=== PATIENT | female | born 1935 | race Caucasian/White ===

== ENCOUNTER → 2018-02-28 | Outpatient (CLI) | payer MEDICARE, OTHER ==
--- NOTE | 2018-02-28 15:11 | RAD ---
PQRS Compliance Statement: One or more of the following individualized dose reduction techniques were utilized for this examination: 1. Automated exposure control 2. Adjustment of the mA and/or kV according to patient size 3. Use of iterative reconstruction technique CT abdomen/pelvis without contrast 02/28/2018 2:30 PM INDICATION: Weeping sore at the umbilicus for one week. Kidney failure. COMPARISON: None available TECHNIQUE: Multiple axial CT images of the abdomen and pelvis were obtained without intravenous contrast. Coronal and sagittal reformats are provided. FINDINGS: Lung bases are clear. Heart size is within normal limits. Evaluation of solid abdominal viscera is limited by lack of intravenous contrast. No suspicious hepatic lesions are identified. Calcination's of the spleen and liver likely represent sequela prior granulomatous exposure. Calcified gallstone is identified. There is gallbladder wall calcification. There is moderate fatty atrophy of the pancreas. No suspicious pancreatic mass is identified. No peripancreatic inflammatory changes are identified. The abdominal aorta is normal in course and caliber. There are no pathologically enlarged lymph nodes in the abdomen and pelvis. There is no abdominal free fluid. There is no free intraperitoneal air. Dense calcified atheromatous changes of the abdominal aorta are present. There is a 6 mm nonobstructing calculus in inferior pole the left kidney. Bilateral renal cortical atrophy is identified. Motion artifact limits evaluation of the kidneys. There may be a 16 mm cyst in the anterior interpolar left kidney. There is mild colonic diverticulosis. No adjacent plantar changes are identified. No evidence of bowel obstruction or inflammation. Appendix is normal in appearance. Urinary bladder is suboptimally distended. No suspicious pelvic masses are identified. There is small amount of fluid in the region of the appendix with associated tiny umbilical hernia containing fat. No drainable fluid collection is identified. No suspicious osseous abnormality is identified. Moderate degenerative disc disease of the lumbar spine is present. There is minimal anterolisthesis of L5 on S1. IMPRESSION: 1. Minimal fluid is noted involving the umbilical region without a drainable fluid collection. No abscess is identified. Tiny fat-containing umbilical hernia is noted. 2. 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 3. 6 mm nonobstructing calculus in inferior pole the left kidney. 4. 16 mm cystic lesion in the anterior interpolar left kidney is inadequately assessed. Further evaluation with renal ultrasound on a nonemergent basis. Electronically signed by: Jo-Ann Garcia MD (02/28/2018 3:08 PM) [facility]
== END | disposition home or self-care (01) ==
LOC: PMG 13:58
PROVIDERS: ATTEND Physician Assistant
DX: N20.0 Calculus of kidney (principal); K80.10 Calculus of gallbladder with chronic cholecystitis without obstruction; N28.89 Other specified disorders of kidney and ureter; M51.36 Other intervertebral disc degeneration, lumbar region; M43.17 Spondylolisthesis, lumbosacral region; N32.89 Other specified disorders of bladder; K57.30 Diverticulosis of large intestine without perforation or abscess without bleeding; N26.1 Atrophy of kidney (terminal); I70.0 Atherosclerosis of aorta; K86.89 Other specified diseases of pancreas; K80.80 Other cholelithiasis without obstruction
CPT/HCPCS: 74176

== ENCOUNTER 2019-01-09 12:10 | Inpatient (IN) | payer MEDICARE, OTHER ==
[~2019-01-09] VITALS: Ht 158.8 cm; Wt 88.5 kg
[2019-01-09] VITALS (24 sets, daily range): BP systolic 107–152; BP diastolic 32–88
[2019-01-09 13:46] LABS: BASO # 0.1 x10^3/uL (0.0-0.2); BASO % 1 % (0-3); EOS # 0.5 x10^3/uL (0.0-0.7); EOS % 4 % (0-3); HEMATOCRIT 44.1 % (36.0-47.0); HEMOGLOBIN 14.4 g/dL (12.0-15.5); LYMPH # 1.6 x10^3/uL (1.0-4.8); LYMPH % 11 % (24-48); MEAN CORPUSCULAR HEMOGLOBIN 29 pg (25-35); MEAN CORPUSCULAR HGB CONC 33 g/dL (31-37); MEAN CORPUSCULAR VOLUME 88 fL (79-100); MONO # 1.5 x10^3/uL (0.0-1.1); MONO % 10 % (0-9); NEUT # 11.1 x10^3uL (1.8-7.7); NEUT % 75 % (31-73); PLATELET COUNT 276 x10^3/uL (140-400); RED BLOOD COUNT 5.04 x10^6/uL (3.50-5.40); RED CELL DISTRIBUTION WIDTH 14.4 % (11.5-14.5); WHITE BLOOD COUNT 14.9 x10^3/uL (4.0-11.0)
[2019-01-09 13:52] LABS: ALBUMIN 3.5 g/dL (3.4-5.0); ALBUMIN/GLOBULIN RATIO 0.8 (1.0-1.7); CALCIUM 9.7 mg/dL (8.5-10.1); CREATININE 1.6 mg/dL (0.6-1.0); GFR 30.6; POTASSIUM 4.3 mmol/L (3.5-5.1); TOTAL BILIRUBIN 0.6 mg/dL (0.2-1.0)
--- NOTE | 2019-01-09 13:57 | PDOC2 ---
VANESSA PATE PRODUCTION CLERK 01/09/19 1357: CARDIAC CONSULT DATE OF CONSULT Date Of Consult DATE: 01/09/19 TIME: 13:54 REASON FOR CONSULT Reason for Consult AFIB with RVR REFERRING PHYSICIAN Referring Physician Dr. Carrion SOURCE Source: Chart review, Patient HPI History of Present Illness This is an 83 yo female, who presented secondary to new AFIB with RVR. Patient presented to PCP office secondary to 1 week history of right sided abdominal pain and nausea. Heart rate was noted to be elevated. EKG revealed AFIB with RVR and patient was admitted to the hospital for further evaluation and treatment. Patient denies any chest pain, palpitations, dizziness, diaphoresis, or shortness of breath. Has had nausea, but no vomiting. No prior history of AFIB. PAST MEDICAL HISTORY Cardiovascular: HTN Musculoskeletal: Osteoarthritis Rheumatologic: Gout PAST SURGICAL HISTORY Past Surgical History: Cataract Removal, Hysterectomy FAMILY HISTORY Family History: Hypertension SOCIAL HISTORY Smoke: No ALCOHOL: none Drugs: None Lives: with Family CURRENT MEDICATIONS Current Medications Current Medications Diltiazem HCl 125 mg/Dextrose 125 ml @ 5 mls/hr CONT PRN IV SEE I/O RECORD; St art 01/09/19 at 13:15; Status UNV ALLERGIES Allergies: Coded Allergies: codeine (Verified Adverse Reaction, Mild, stomach upset, 01/09/19) ROS Review of Systems 14 point ROS conducted with pertinent positives noted in HPI PHYSICAL EXAM General: Alert, Oriented X3, Cooperative, No acute distress HEENT: Atraumatic, Mucous membr. moist/pink Lungs: Clear to auscultation, Other (diminished bases ) Heart: Other (IRRR; tele AFIB with RVR. Distant heart tones ) Abdomen: Soft Extremities: Other (trace bilateral LE edema ) Neuro: Normal speech, Sensation intact Psych/Mental Status: Mental status NL, Mood NL MUSCULOSKELETAL: No swelling, Osteoarthritic changes both hands VITALS Vital Signs Vital Signs Date Time Temp Pulse Resp B/P (MAP) Pulse Ox O2 Delivery O2 Flow Rate FiO2 01/09/19 13:11 98.0 125 22 146/76 (99) 96 Room Air LABS LABS Laboratory Tests Test 01/09/19 13:33 White Blood Count 14.9 x10^3/uL (4.0-11.0) Red Blood Count 5.04 x10^6/uL (3.50-5.40) Hemoglobin 14.4 g/dL (12.0-15.5) Hematocrit 44.1 % (36.0-47.0) Mean Corpuscular Volume 88 fL (79-100) Mean Corpuscular Hemoglobin 29 pg (25-35) Mean Corpuscular Hemoglobin Concent 33 g/dL (31-37) Red Cell Distribution Width 14.4 % (11.5-14.5) Platelet Count 276 x10^3/uL (140-400) Neutrophils (%) (Auto) 75 % (31-73) Lymphocytes (%) (Auto) 11 % (24-48) Monocytes (%) (Auto) 10 % (0-9) Eosinophils (%) (Auto) 4 % (0-3) Basophils (%) (Auto) 1 % (0-3) Neutrophils # (Auto) 11.1 x10^3uL (1.8-7.7) Lymphocytes # (Auto) 1.6 x10^3/uL (1.0-4.8) Monocytes # (Auto) 1.5 x10^3/uL (0.0-1.1) Eosinophils # (Auto) 0.5 x10^3/uL (0.0-0.7) Basophils # (Auto) 0.1 x10^3/uL (0.0-0.2) Sodium Level 137 mmol/L (136-145) Potassium Level 4.3 mmol/L (3.5-5.1) Chloride Level 104 mmol/L (98-107) Carbon Dioxide Level 22 mmol/L (21-32) Anion Gap 11 (6-14) Blood Urea Nitrogen 33 mg/dL (7-20) Creatinine 1.6 mg/dL (0.6-1.0) Estimated GFR (Cockcroft-Gault) 30.6 BUN/Creatinine Ratio 21 (6-20) Glucose Level 129 mg/dL (70-99) Calcium Level 9.7 mg/dL (8.5-10.1) Total Bilirubin 0.6 mg/dL (0.2-1.0) Aspartate Amino Transf (AST/SGOT) 14 U/L (15-37) Alanine Aminotransferase (ALT/SGPT) 16 U/L (14-59) Alkaline Phosphatase 83 U/L (46-116) Total Protein 8.0 g/dL (6.4-8.2) Albumin 3.5 g/dL (3.4-5.0) Albumin/Globulin Ratio 0.8 (1.0-1.7) ASSESSMENT/PLAN Assessment/Plan 1. AFIB with RVR, new onset. 2. Hypertension; controlled Recommendations Start Cardizem gtt for rate control OAC with Eliquis for stroke prophylaxis. Risks/benefits discussed with patient and family, including granddaughter who is a nurse, and they are agreeable. Echo to assess LV systolic function TSH, lipids Outpatient CV in 3-4 weeks. Consider outpatient ischemic evaluation ASHLEY JORDAN MD 01/09/192034: CARDIAC CONSULT ASSESSMENT/PLAN Assessment/Plan Patient seen and examined. Agree with FLOOR RUNNER's assessment and plan. Patient with new onset AF with RVR Agree with cardizem gtt for rate control and eliquis for stroke prophylaxix Plan echo and MPI as outpatient Cardioversion after 3-4 weeks of anticoagulation Thank you for your consultation VANESSA PATE APRN Jan 09, 2019 13:57 ASHLEY JORDAN MD Jan 09, 2019 20:35
[2019-01-09] MEDS ORDERED: OLME1TAB25 PO (13:58)
[2019-01-09] MEDS ORDERED: POTA10TA5 PO (13:58)
[2019-01-09] MEDS ORDERED: OMEG-33 PO (13:58)
[2019-01-09] MEDS ORDERED: ASPI-630 PO (13:58)
[2019-01-09] MEDS ORDERED: MAGN400T5 PO (13:58)
[2019-01-09] MEDS ORDERED: AMLO10TA4 PO (13:58)
[2019-01-09] MEDS ORDERED: FURO-69 PO (13:58)
[2019-01-09] MEDS: dilTIAZem VIAL 125 MG in IV DEXTROSE 5% 100 ML IV PRN ×2 (14:58→23:55)
--- NOTE | 2019-01-09 15:32 | HP ---
ADMIT DATE: 01/09/2019 HISTORY OF PRESENT ILLNESS: The patient is an 83-year-old female patient who came with her primary care physician today as she has been complaining of nausea that has been going on for almost a week now. She also complained of right flank pain; however, she denied any vomiting, denied any hematemesis, melena, or hematochezia. Still admits to constipation, but denied any diarrhea. Denied any dysuria, frequency or hematuria. Apparently while at her primary care physician's office, she was noted to have a rapid heart rate. She has tachycardia with ____ rhythm and an EKG showed confirmed that she was actually in atrial fibrillation with rapid ventricular response and therefore, the patient was admitted with atrial fibrillation, rapid ventricular response to control the heart rate and to consult the cardiology team. PAST MEDICAL HISTORY: Significant for hypertension. PAST SURGICAL HISTORY: Significant for bilateral cataract extraction, total abdominal hysterectomy, bilateral salpingo-oophorectomy. ALLERGIES: She has no known drug allergies. MEDICATIONS: She is currently on Benicar/hydrochlorothiazide 40/25 mg 1 tablet once a day, Norvasc 10 mg once a day, baby aspirin 81 mg once a day, and magnesium oxide 1 tablet once a day. FAMILY HISTORY: She has no sisters or brothers. Her father at the age of 25 and according to her, he has pernicious anemia, congestive heart failure and kidney disease. Mother at the age of 84 with natural causes. SOCIAL HISTORY: She is . She has 2 daughters and 2 sons. One baby was survived only for 2 days and one other son of cancer. Currently, she has 1 son and 2 daughters alive. She has never smoked, does not drink alcohol or use any recreational drugs. 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 She continued to be fairly independent. Drives her own car and do her own shopping. REVIEW OF SYSTEMS: The patient denied any blurring of vision. She has bilateral cataract extraction, but denied any glaucoma or macular degeneration. Denied any earache, tinnitus or sensorineural deafness. Denied any nosebleeds, stuffy nose or postnasal drip. Denied any sore throat, sore tongue, toothache, hoarseness of voice or difficulty swallowing. Did complain of nausea, but no vomiting. Denied any diarrhea or constipation. Denied any dysuria. Denied any hematemesis, melena or hematochezia. She denied any chest pain, shortness of breath, orthopnea, paroxysmal nocturnal dyspnea. Denied any cough, phlegm or hemoptysis. Denied any palpitation, dizziness or lightheadedness. Denied any vertigo. PHYSICAL EXAMINATION: GENERAL: On arrival to the hospital, she looked well and was clearly in no apparent respiratory distress. No pallor, jaundice, cyanosis or thyromegaly. No jugular venous distention. No limb edema. VITAL SIGNS: Her heart rate was 125, blood pressure was 146/76, temperature was 98, respiratory rate was 22 and oxygen saturation was 96%. HEAD, EYES, EARS, NOSE AND THROAT: Showed normocephalic, atraumatic. NECK: Supple. HEART: Showed normal first and second heart sounds. No gallop or murmur. CHEST: Clear to auscultation. No crepitation or rhonchi. ABDOMEN: Distended, soft, nontender. No guarding or rigidity. No organomegaly. All hernial orifice intact. Bowel sounds normal. NEUROLOGIC: She was awake, alert, responding appropriately. All her cranial nerves intact. EXTREMITIES: She moves extremities without difficulty. She ambulates with a cane, walker. She has had no laboratory work done yet. We will arrange for her to have a CBC, CMP, troponin as well as TSH and fasting lipid profile. She has had 2 EKGs which both of them showed that she was in atrial fibrillation with rapid ventricular response. We will consult the [employer]er shoe [employer] and we will decide the further management accordingly, probably started on Cardizem drip after an IV bolus, probably start her on anticoagulant. DALILA MCELROY MD DR: ABEL/nikki JOB#: [id number] / [id number]
[2019-01-09] MEDS: APIXABAN 5 MG TABLET. PO SCH (20:45)
[2019-01-10] VITALS (20 sets, daily range): BP systolic 96–149; BP diastolic 49–124
[2019-01-10] MEDS ORDERED: POTASSIUM CHLORIDE 10 MEQ TABLET.ER. PO SCH (08:00)
[2019-01-10 08:04] LABS: HEMATOCRIT 43.6 % (36.0-47.0); HEMOGLOBIN 14.1 g/dL (12.0-15.5); RED BLOOD COUNT 4.92 x10^6/uL (3.50-5.40); RED CELL DISTRIBUTION WIDTH 14.6 % (11.5-14.5); WHITE BLOOD COUNT 15.1 x10^3/uL (4.0-11.0)
[2019-01-10 08:14] LABS: CALCIUM 9.4 mg/dL (8.5-10.1); CREATININE 1.4 mg/dL (0.6-1.0); GFR 35.7; POTASSIUM 4.3 mmol/L (3.5-5.1)
[2019-01-10] MEDS: APIXABAN 5 MG TABLET. PO SCH (08:31)
[2019-01-10] MEDS ORDERED: amLODIPine BESYLATE 10 MG TABLET PO SCH (09:00)
[2019-01-10] MEDS ORDERED: MAGNESIUM OXIDE 400 MG TABLET PO SCH (09:00)
[2019-01-10] MEDS ORDERED: FUROSEMIDE 20 MG TABLET PO SCH (09:00)
[2019-01-10] MEDS ORDERED: LOSARTAN 50 MG TABLET. PO SCH (09:00)
[2019-01-10] MEDS ORDERED: OMEGA-3 FATTY ACIDS/FISH OIL 1,000 MG CAPSULE. PO SCH (09:00)
[2019-01-10] MEDS ORDERED: hydroCHLOROthiazide 25 MG TABLET PO SCH (09:00)
[2019-01-10] MEDS ORDERED: ASPIRIN 81 MG TAB.CHEW PO SCH (09:00)
[2019-01-10 10:37] LABS: THYROID STIM HORMONE (TSH) 2.53 uIU/mL (0.358-3.740)
[2019-01-10] MEDS: dilTIAZem VIAL 125 MG in IV DEXTROSE 5% 100 ML IV PRN (12:50)
--- NOTE | 2019-01-10 14:11 | PDOC ---
PROGRESS NOTES Assessment 1. AFIB with RVR, new onset. Heart rate much better controlled. Change Cardizem to by mouth. Continue eliquis for stroke prophylaxis and plan outpatient cardioversion in 3-4 weeks. We will also check 2-D echo and Lexiscan nuclear stress test as an outpatient. 2. Hypertension; controlled Subjective Feeling much better. Wants to go home. Objective Vital Signs Date Time Temp Pulse Resp B/P (MAP) Pulse Ox O2 Delivery O2 Flow Rate FiO2 01/10/19 13:30 55 141/58 01/10/19 11:55 98.0 20 97 Room Air Intake and Output 01/10/19 07:00 Intake Total 442 ml Output Total 0 ml Balance 442 ml Intake Oral 307 ml IV Total 135 ml Output Urine Total 0 ml # Voids 3 Abdomen: Soft, No tenderness Heart: Other (heart rate is irregular) Extremities: Other (trace edema) General: Alert, No acute distress HEENT: Atraumatic Lungs: Clear to auscultation Neck: Supple Neuro: Normal speech Psych/Mental Status: Mental status NL Review of Relevant I have reviewed the following items linda (where applicable) has been applied. Labs Laboratory Tests Test 01/10/19 07:50 White Blood Count 15.1 x10^3/uL (4.0-11.0) H Red Blood Count 4.92 x10^6/uL (3.50-5.40) Hemoglobin 14.1 g/dL (12.0-15.5) Hematocrit 43.6 % (36.0-47.0) Mean Corpuscular Volume 89 fL (79-100) Mean Corpuscular Hemoglobin 29 pg (25-35) Mean Corpuscular Hemoglobin Concent 32 g/dL (31-37) Red Cell Distribution Width 14.6 % (11.5-14.5) H Platelet Count 248 x10^3/uL (140-400) Sodium Level 138 mmol/L (136-145) Potassium Level 4.3 mmol/L (3.5-5.1) Chloride Level 103 mmol/L (98-107) Carbon Dioxide Level 23 mmol/L (21-32) Anion Gap 12 (6-14) Blood Urea Nitrogen 28 mg/dL (7-20) H Creatinine 1.4 mg/dL (0.6-1.0) H Estimated GFR (Cockcroft-Gault) 35.7 Glucose Level 147 mg/dL (70-99) H Calcium Level 9.4 mg/dL (8.5-10.1) Medications Current Medications Medications (Trade) Dose Ordered Sig/Latesha Route PRN Reason Start Time Stop Time Status Last Admin Dose Admin Apixaban (Eliquis) 5 mg BID PO 01/09/19 21:00 01/10/19 08:31 Aspirin (Children'S Aspirin) 81 mg DAILY PO 01/10/19 09:00 01/10/19 08:31 Magnesium Oxide (Magnesium Oxide) 400 mg DAILY PO 01/10/19 09:00 01/10/19 08:30 Losartan Potassium (Cozaar) 100 mg DAILY PO 01/10/19 09:00 01/10/19 08:30 Potassium Chloride (Klor-Con) 10 meq DAILYWBKFT PO 01/10/19 08:00 01/10/19 08:31 Fish Oil (Fish Oil) 1,000 mg DAILY PO 01/10/19 09:00 01/10/19 08:30 Hydrochlorothiazide (Hydrodiuril) 25 mg DAILY PO 01/10/19 09:00 01/10/19 08:30 Diltiazem HCl (Cardizem 24hr Cd) 240 mg DAILY PO 01/10/19 13:30 01/10/19 13:30 Vitals/I & O Vital Signs Date Time Temp Pulse Resp B/P (MAP) Pulse Ox O2 Delivery O2 Flow Rate FiO2 01/10/19 13:30 55 141/58 01/10/19 11:55 98.0 20 97 Room Air I & O 01/09/19 01/09/19 01/10/19 15:00 23:00 07:00 Intake Total 25 ml 182 ml 235 ml Output Total 0 ml 0 ml Balance 25 ml 182 ml 235 ml ASHLEY JORDAN MD Jan 10, 2019 14:11
--- NOTE | 2019-01-10 17:41 | EKG ---
[address] [address] Test Date: 2019-01-09 Test Time: 12:54:51 Pat Name: KVNG LEAVITT Department: Room: [facility] 1 Gender: F Tool Crib Manager: EMA : [id number] Requested By: DALILA MCELROY Order Number: [id number] Reading MD: Measurements Intervals [place] Rate: 128 P: HI: QRS: -2 QRSD: 80 T: 64 QT: 266 QTc: 391 Interpretive Statements IRREGULAR RHYTHM, NO P-WAVE FOUND LEFTWARD AXIS T ABNORMALITY IN ANTERIOR LEADS ABNORMAL ECG RI6.02 No previous ECG available for comparison
[2019-01-10] MEDS ORDERED: DILT240C32 PO (18:07)
[2019-01-10] MEDS ORDERED: APIX5TAB5 PO (18:07)
--- NOTE | 2019-01-10 19:22 | DS ---
DATE OF DISCHARGE: 01/10/2019 HOSPITAL COURSE: The patient is an 83-year-old female patient who presented new onset of atrial fibrillation with rapid ventricular response. She was started on Cardizem drip and was switched this afternoon to oral Cardizem. She was also started on apixaban. Her heart rate remained stable, well controlled and a decision was made to discharge her home and to follow with Cardiology team as an outpatient. PHYSICAL EXAMINATION: GENERAL: When I examined her this afternoon, she looked well and was clearly in no apparent respiratory distress. No pallor, jaundice, cyanosis or thyromegaly. No jugular venous distention or limb edema. VITAL SIGNS: Her heart rate was 61, blood pressure was 114/66, temperature was 98, respiratory rate was 18 and oxygen saturation was 97% on room air. The rest of clinical examination is stable. LABORATORY DATA: Her lab work this morning showed a white cell count 15,100; hemoglobin 14; hematocrit 43; MCV was 89 and platelet count 248,000. Her serum sodium was 138, potassium 4.3, chloride 103, bicarbonate 23, anion gap of 12, BUN 28, creatinine 1.4, estimated GFR was 35 mL per minute. Her glucose 147, calcium was 9.4. Serum triglycerides were 89, total cholesterol 153, LDL was 95, VLDL was 17, HDL was 41, the ratio was 3. TSH was 2.53. Her prothrombin time was 10.4, INR 1, aPTT was 30. DISCHARGE MEDICATIONS: She was discharged home to continue on diltiazem 240 mg once a day, hydrochlorothiazide 25 mg once a day, fish oil 1000 mg once a day, losartan potassium 100 mg once a day, magnesium oxide 400 mg once a day, aspirin 81 mg once a day. We will discontinue the Lasix, potassium and amlodipine. FINAL DISCHARGE DIAGNOSES: New onset atrial fibrillation with rapid ventricular response, much better controlled. Continue with Cardizem and Eliquis. Will be seen as an outpatient in 3-4 weeks' time for outpatient cardioversion. Hypertension, well controlled. DALILA MCELROY MD DR: ABEL/nikki JOB#: [id number] / [id number]
== END 2019-01-10 18:34 | disposition home or self-care (01) | DRG 309 ==
LOC: ICU 12:10
PROVIDERS: ADMIT Internal Medicine; ATTEND Internal Medicine
DX: I48.91 Unspecified atrial fibrillation (principal); R65.10 Systemic inflammatory response syndrome (SIRS) of non-infectious origin without acute organ dysfunction; I10 Essential (primary) hypertension; M19.90 Unspecified osteoarthritis, unspecified site; Z82.49 Family history of ischemic heart disease and other diseases of the circulatory system; Z90.710 Acquired absence of both cervix and uterus; Z98.41 Cataract extraction status, right eye; Z98.42 Cataract extraction status, left eye; Z90.722 Acquired absence of ovaries, bilateral
CPT/HCPCS: 36415; 74019; 80048; 80053; 80061; 82550; 84443; 84484; 85025; 85027; 85610; 85730; 93005; J3490

== ENCOUNTER 2019-01-12 09:38 | Emergency (ER) | payer MEDICARE, OTHER ==
[~2019-01-12] VITALS: Ht 158.8 cm; Wt 88.5 kg
[~2019-01-12 09:38] MED LIST: AMLO10TA4 PO; APIX5TAB5 PO; ASPI-630 PO; DILT240C32 PO; FURO-69 PO; MAGN400T5 PO; OLME1TAB25 PO; OMEG-33 PO; POTA10TA5 PO
[2019-01-12] MEDS ORDERED: IV NORMAL SALINE 1,000ML 1,000 ML IV SCH (10:06)
[2019-01-12] MEDS ORDERED: ONDANSETRON PF 4 MG/2 ML VIAL. IVP ONE (10:15)
[2019-01-12 10:24] LABS: BASO # 0.1 x10^3/uL (0.0-0.2); BASO % 1 % (0-3); EOS # 0.7 x10^3/uL (0.0-0.7); EOS % 4 % (0-3); HEMATOCRIT 40.4 % (36.0-47.0); HEMOGLOBIN 13.2 g/dL (12.0-15.5); LYMPH # 2.5 x10^3/uL (1.0-4.8); LYMPH % 13 % (24-48); MEAN CORPUSCULAR HEMOGLOBIN 28 pg (25-35); MEAN CORPUSCULAR HGB CONC 33 g/dL (31-37); MEAN CORPUSCULAR VOLUME 87 fL (79-100); MONO # 1.5 x10^3/uL (0.0-1.1); MONO % 8 % (0-9); NEUT # 13.9 x10^3uL (1.8-7.7); NEUT % 74 % (31-73); PLATELET COUNT 300 x10^3/uL (140-400); RED BLOOD COUNT 4.63 x10^6/uL (3.50-5.40); RED CELL DISTRIBUTION WIDTH 14.6 % (11.5-14.5); WHITE BLOOD COUNT 18.6 x10^3/uL (4.0-11.0)
--- NOTE | 2019-01-12 10:34 | PHYS DOC ---
Past History Past Medical History: A-Fib, Hypertension Past Surgical History: No Surgical History Alcohol Use: None Drug Use: None Adult General Chief Complaint Chief Complaint: ABDOMINAL PAIN HPI HPI Patient is an 83-year-old female who presents with complaint of right upper quadrant abdominal pain that started this morning when she got up. Patient rates the pain as severe stating that it is an 11 out of 10. She denies any nausea or vomiting. She also denies any diarrhea. Patient states that pain is worsened with movement and with palpation on the abdomen. She states that nothing is improving her pain. Patient is unable to describe the pain. She is not aware of any fever and denies any chest pain or shortness of breath.[] Review of Systems Review of Systems Constitutional: Denies fever or chills [] Respiratory: Denies cough or shortness of breath [] Cardiovascular: No additional information not addressed in HPI [] GI: Complains of right upper quadrant abdominal pain without vomiting or diarrhea [] Integument: Denies rash or skin lesions [] Neurologic: Denies headache, focal weakness or sensory changes [] All other systems were reviewed and found to be within normal limits, except as documented in this note. Current Medications Current Medications Current Medications Medications (Trade) Dose Ordered Sig/Latesha Start Time Stop Time Status Last Admin Dose Admin Fentanyl Citrate (Fentanyl 2ml Vial) 25 mcg PRN Q15MIN PRN 01/12/19 10:15 01/13/19 10:14 Ondansetron HCl (Zofran) 4 mg 1X ONCE 01/12/19 10:15 01/12/19 10:23 DC Sodium Chloride 1,000 ml @ 1,000 mls/hr Q1H 01/12/19 10:06 01/12/19 11:05 Allergies Allergies Allergies Coded Allergies Type Severity Reaction Last Updated Verified codeine Adverse Reaction Mild stomach upset 01/09/19 Yes Physical Exam Physical Exam Constitutional: Well developed, well nourished, in mild distress, non-toxic appearance. [] HENT: Normocephalic, atraumatic, bilateral external ears normal, oropharynx moist, no oral exudates, nose normal. [] Eyes: PERRLA, EOMI, conjunctiva normal, no discharge. [] Neck: Normal range of motion, no tenderness, supple. [] Cardiovascular: Tachycardic rate with irregular rhythm[] Lungs & Thorax: There are are a few fine rhonchi bilaterally to auscultation [] Abdomen: Bowel sounds normal, soft, with marked tenderness in the right upper abdomen. [] Skin: Warm, dry, no erythema, no rash. [] Extremities: No tenderness, no cyanosis, no clubbing, ROM intact. [] Neurologic: Awake and alert, no focal deficits noted. [] Current Patient Data Vital Signs Vital Signs Date Time Temp Pulse Resp B/P (MAP) Pulse Ox O2 Delivery O2 Flow Rate FiO2 01/12/19 09:59 135 22 95 Room Air Lab Results Laboratory Tests Test 01/12/19 10:08 White Blood Count 18.6 x10^3/uL (4.0-11.0) H Red Blood Count 4.63 x10^6/uL (3.50-5.40) Hemoglobin 13.2 g/dL (12.0-15.5) Hematocrit 40.4 % (36.0-47.0) Mean Corpuscular Volume 87 fL (79-100) Mean Corpuscular Hemoglobin 28 pg (25-35) Mean Corpuscular Hemoglobin Concent 33 g/dL (31-37) Red Cell Distribution Width 14.6 % (11.5-14.5) H Platelet Count 300 x10^3/uL (140-400) Neutrophils (%) (Auto) 74 % (31-73) H Lymphocytes (%) (Auto) 13 % (24-48) L Monocytes (%) (Auto) 8 % (0-9) Eosinophils (%) (Auto) 4 % (0-3) H Basophils (%) (Auto) 1 % (0-3) Neutrophils # (Auto) 13.9 x10^3uL (1.8-7.7) H Lymphocytes # (Auto) 2.5 x10^3/uL (1.0-4.8) Monocytes # (Auto) 1.5 x10^3/uL (0.0-1.1) H Eosinophils # (Auto) 0.7 x10^3/uL (0.0-0.7) Basophils # (Auto) 0.1 x10^3/uL (0.0-0.2) Platelet Estimate Pending EKG EKG [] Radiology/Procedures Radiology/Procedures [] Impressions: PROCEDURE: CT ABDOMEN PELVIS WO CONTRAST CT Abdomen and Pelvis without contrast History: Right upper quadrant abdominal pain Technique: Noncontrast CT imaging was performed of the abdomen and pelvis. Multiplanar images are reviewed. Exposure: One or more of the following individualized dose reduction techniques were utilized for this examination: 1. Automated exposure control 2. Adjustment of the mA and/or kV according to patient size 3. Use of iterative reconstruction technique. Comparison: February 28, 2018 Findings: There is moderate quantity of free air. No free air tracks near the gastroduodenal junction/proximal first along at which there is degree of wall thickening, also wall thickening more distally of the descending duodenum. There is small quantity of free fluid about the liver. There is dependent atelectasis visualized lung bases bilaterally. There is coronary calcification. There is calcification of the gallbladder forrester and also gallstone near the gallbladder neck about 1.2 cm. Bowel is not significantly dilated. There is no obvious focal abnormality of the pancreas or liver. There are some splenic granulomas. Normal appendix is believed to be visualized. There is multilevel advanced degenerative disc disease throughout the lumbar spine also visualized inferior thoracic levels. There is multilevel lumbar facet degenerative change. There is grade 1 anterior spondylolisthesis L4-5 and L5-S1. There is lumbar levoscoliosis. There is multilevel variable lateral recess stenosis of the lumbar spine. There is atherosclerotic calcification of the abdominal aorta, also near the origins of the superior mesenteric and celiac arteries at which there are likely significant stenoses greater of the celiac artery. There is also some atherosclerotic calcification of the inferior mesenteric artery proximally. There is small hiatal hernia. There is 0.7 cm inferior left renal calculus. There is variable thinning of the cortex of the kidneys. There is a hypodense lesion of the anterior left kidney about 1.5 cm, density measurements of a cyst up to 3 Hounsfield units. Impression: 1. There is pneumoperitoneum, evidence of perforated viscus probably emanating from the gastroduodenal junction/first portion of duodenum at which there is wall thickening. Perforated ulcer would be more common although underlying mass not excludable by CT. There is small quantity of free fluid about the liver. 2. There is a gallstone stone near the gallbladder neck about 1.2 cm. There is gallbladder wall calcification, associated with increased risk of gallbladder malignancy. 3. There is colonic diverticulosis. 4. There is coronary calcification. 5. There is inferior left renal calculus. 6. Calcified plaque results in stenoses of the origins of the celiac and superior mesenteric arteries, likely significant. Findings discussed with AMI LAND at 01/12/2019 11:54 AM. FOR INTERNAL CODING PURPOSES RESULT CODE: (C) Electronically signed by: Gela Garcia MD (01/12/2019 12:04 PM) [email or web address] DICTATED AND SIGNED BY: GELA GARCIA MD Course & Med Decision Making Course & Med Decision Making Pertinent Labs and Imaging studies reviewed. (See chart for details) A sugar moved to room upon arrival was evaluated by your medical staff after which an IV was established and blood work was drawn. Patient given IV fluids as well as medications for pain and nausea. Patient required repeat dosing of pain medication for management of patient's pain. Ultimately patient went over for CT of the abdomen and pelvis without contrast. On-call radiologist called to inform regarding findings of CT, which demonstrated free intraperitoneal air consistent with perforated viscus. Findings have been reviewed with patient and family and on-call surgeon has been contacted for transfer of patient. Patient's case has been discussed with Dr. Jennings and he is accepting patient in transfer to the ICU at [facility]. Dragon Disclaimer Dragon Disclaimer This electronic medical record was generated, in whole or in part, using a voice recognition dictation system. Departure Departure: Impression: Primary Impression: Perforated abdominal viscus Disposition: 02 XFER SHT-TRM HOSP Condition: GUARDED Referrals: DARA SANDERS (PCP) AMI LAND Jr. DO Jan 12, 2019 10:34
[2019-01-12 10:37] LABS: ALBUMIN 3.2 g/dL (3.4-5.0); ALBUMIN/GLOBULIN RATIO 0.8 (1.0-1.7); CALCIUM 9.2 mg/dL (8.5-10.1); CREATININE 1.8 mg/dL (0.6-1.0); GFR 26.7; POTASSIUM 3.7 mmol/L (3.5-5.1); TOTAL BILIRUBIN 0.6 mg/dL (0.2-1.0); TOTAL PROTEIN 7.3 g/dL (6.4-8.2)
[2019-01-12] MEDS ORDERED: dilTIAZem 25 MG/5 ML VIAL IVP ONE (10:45)
[2019-01-12] MEDS ORDERED: HYDROmorphone PF 1 MG/ML DISP.SYRIN IV ONE ×3 (10:45→12:00)
[2019-01-12 11:11] VITALS: BP 146/51
[2019-01-12 11:34] LABS: % BANDS 2 % (0-9); % EOS 3 % (0-5); % LYMPHS 16 % (24-48); % MONOS 3 % (0-10); % SEGS 76 % (35-66)
[2019-01-12 11:36] LABS: ACANTHOCYTES FEW
[2019-01-12 11:39] LABS: PLT ESTIMATE ADEQUATE (ADEQUATE)
[2019-01-12] MEDS ORDERED: PIPERACILLIN/TAZOBACTAM 3.375 GM in IV NORMAL SALINE 50ML 50 ML IV ONE (12:00)
--- NOTE | 2019-01-12 12:07 | RAD ---
CT Abdomen and Pelvis without contrast History: Right upper quadrant abdominal pain Technique: Noncontrast CT imaging was performed of the abdomen and pelvis. Multiplanar images are reviewed. Exposure: One or more of the following individualized dose reduction techniques were utilized for this examination: 1. Automated exposure control 2. Adjustment of the mA and/or kV according to patient size 3. Use of iterative reconstruction technique. Comparison: February 28, 2018 Findings: There is moderate quantity of free air. No free air tracks near the gastroduodenal junction/proximal first along at which there is degree of wall thickening, also wall thickening more distally of the descending duodenum. There is small quantity of free fluid about the liver. There is dependent atelectasis visualized lung bases bilaterally. There is coronary calcification. There is calcification of the gallbladder forrester and also gallstone near the gallbladder neck about 1.2 cm. Bowel is not significantly dilated. There is no obvious focal abnormality of the pancreas or liver. There are some splenic granulomas. Normal appendix is believed to be visualized. There is multilevel advanced degenerative disc disease throughout the lumbar spine also visualized inferior thoracic levels. There is multilevel lumbar facet degenerative change. There is grade 1 anterior spondylolisthesis L4-5 and L5-S1. There is lumbar levoscoliosis. There is multilevel variable lateral recess stenosis of the lumbar spine. There is atherosclerotic calcification of the abdominal aorta, also near the origins of the superior mesenteric and celiac arteries at which there are likely significant stenoses greater of the celiac artery. There is also some atherosclerotic calcification of the inferior mesenteric artery proximally. There is small hiatal hernia. There is 0.7 cm inferior left renal calculus. There is variable thinning of the cortex of the kidneys. There is a hypodense lesion of the anterior left kidney about 1.5 cm, density measurements of a cyst up to 3 Hounsfield units. Impression: 1. There is pneumoperitoneum, evidence of perforated viscus probably emanating from the gastroduodenal junction/first portion of duodenum at which there is wall thickening. Perforated ulcer would be more common although underlying mass not excludable by CT. There is small quantity of free fluid about the liver. 2. There is a gallstone stone near the gallbladder neck about 1.2 cm. There is gallbladder wall calcification, associated with increased risk of gallbladder malignancy. 3. There is colonic diverticulosis. 4. There is coronary calcification. 5. There is inferior left renal calculus. 6. Calcified plaque results in stenoses of the origins of the celiac and superior mesenteric arteries, likely significant. Findings discussed with AMI LAND at 01/12/2019 11:54 AM. FOR INTERNAL CODING PURPOSES RESULT CODE: (C) Electronically signed by: Kumar Hastings MD (01/12/2019 12:04 PM) [email or web address]
[2019-01-12] MEDS ORDERED: IV NORMAL SALINE 50ML 50 ML ONE (12:19)
[2019-01-12] MEDS ORDERED: PIPERACILLIN/TAZOBACTAM 3.375 GM VIAL IV ONE (12:19)
[2019-01-12] MEDS ORDERED: IV NORMAL SALINE 1,000ML 1,000 ML IV ONE (12:30)
--- NOTE | 2019-01-12 16:35 | EKG ---
[address] [address] Test Date: 2019-01-12 Test Time: 09:57:34 Pat Name: KVNG LEAVITT Department: Room: Gender: F Ob/Gyn Physician: : [id number] Requested By: AMI LAND Order Number: [id number] Reading MD: Measurements Intervals [place] Rate: 117 P: WI: QRS: -169 QRSD: 80 T: 146 QT: 322 QTc: 454 Interpretive Statements IRREGULAR RHYTHM, NO P-WAVE FOUND ABNORMAL RIGHT SUPERIOR AXIS DEVIATION QRS(T) CONTOUR ABNORMALITY CONSISTENT WITH HIGH LATERAL INFARCT AGE UNDETERMINED ABNORMAL ECG RI6.01 No previous ECG available for comparison
== END 2019-01-12 12:58 | disposition short-term general hospital (02) ==
LOC: ER 09:38
DX: K63.1 Perforation of intestine (nontraumatic) (principal); K57.30 Diverticulosis of large intestine without perforation or abscess without bleeding; N20.0 Calculus of kidney; K80.20 Calculus of gallbladder without cholecystitis without obstruction; I48.91 Unspecified atrial fibrillation; I10 Essential (primary) hypertension; Z88.5 Allergy status to narcotic agent
CPT/HCPCS: 36415; 74176; 80053; 83605; 83690; 84484; 85007; 85025; 93005; 96374; 96375; 99285; J1170; J2405; J3010; J3490; J7030

== ENCOUNTER → 2019-05-08 | Outpatient (CLI) | payer MEDICARE, OTHER ==
--- NOTE | 2019-05-09 09:36 | RAD ---
5 view lumbar spine series Clinical indications: Low back pain. FINDINGS: Transverse processes appear intact. No compression fracture or discitis or lytic process is seen. There is mild retrolisthesis of T12 on L1 and L1 on L2. Minimal grade 1 anterolisthesis of L3-4 and L5-S1 is seen. Degenerative facet arthropathy is seen throughout the lumbar spine. Moderate to severe degenerative disc space narrowing and endplate spurring is seen throughout the lumbar spine and lumbosacral junction. IMPRESSION: Moderate to severe degenerative lumbar spondylosis and degenerative disc space disease. No compression fracture. 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 Electronically signed by: Salbador Steinberg MD (05/09/2019 9:33 AM) [facility]
== END | disposition home or self-care (01) ==
LOC: PMG 14:43
PROVIDERS: ATTEND Physician Assistant
DX: M47.816 Spondylosis without myelopathy or radiculopathy, lumbar region (principal); M46.86 Other specified inflammatory spondylopathies, lumbar region; M51.36 Other intervertebral disc degeneration, lumbar region; M16.11 Unilateral primary osteoarthritis, right hip
CPT/HCPCS: 72110

== ENCOUNTER 2020-04-25 19:02 | Emergency (ER) | payer MEDICARE, OTHER ==
[~2020-04-25] VITALS: Ht 157.5 cm; Wt 100.0 kg
[2020-04-25] MEDS ORDERED: LIDOCAINE 2% 20 ML VIAL. ONE (19:25)
[2020-04-25] MEDS ORDERED: LIDOCAINE 2% 20 ML VIAL. IJ ONE (19:30)
[2020-04-25] MEDS ORDERED: DIPH,PERTUSS(ACELL),TET VAC/PF 0.5 ML SYRINGE. VAX IM ONE (20:00)
[2020-04-25] MEDS ORDERED: BACITRACIN ZINC TOPICAL OINT PACKET. TP ONE (22:00)
[2020-04-25] MEDS ORDERED: BACI28.433 TP (22:04)
--- NOTE | 2020-04-25 22:04 | PHYS DOC ---
Past History Past Medical History: A-Fib, Arthritis, Hypertension Past Surgical History: Hysterectomy Alcohol Use: None Drug Use: None Adult General Chief Complaint Chief Complaint: MECHANICAL FALL HPI HPI Patient is a 84-year-old female who presents emergency department with lacerations to the fingers of her left hand. Patient states that she lives in a senior care and was backing up to get into her sitting chair when the chair gave way and she cut her fingers on something sharp although she cannot recall exactly what it was. Patient states she did not fall, patient states she did not hit her head, patient states she does not hurt anywhere except for where her fingers have the lacerations. Patient is unsure when her last tetanus shot was. Patient states that she has not had a COVID-19 vaccination this year, patient states she did have a flu vaccination in 2019. Patient denies any numbness or tingling to her left hand. Patient denies any other physical complaints or physical symptoms. Review of Systems Review of Systems 14 body systems of review of systems have been reviewed. See HPI for pertinent positives and negative responses, otherwise all other systems are negative, nonpertinent or noncontributory. Current Medications Current Medications Current Medications Medications (Trade) Dose Ordered Sig/Latesha Start Time Stop Time Status Last Admin Dose Admin Bacitracin (Bacitracin Topical Pkt) 1 pkt 1X ONCE 04/25/20 22:00 04/25/20 22:01 UNV Diphtheria/ Pertussis/Tetanus Vacc (ADACEL TDap SYRINGE) 0.5 ml ONCE ONCE 04/25/20 20:00 04/25/20 20:01 DC 04/25/20 19:51 0.5 ML Lidocaine HCl 20 ml 1X ONCE 04/25/20 19:30 04/25/20 19:44 DC Allergies Allergies Allergies Coded Allergies Type Severity Reaction Last Updated Verified codeine Adverse Reaction Mild stomach upset 01/09/19 Yes Physical Exam Physical Exam Constitutional: Well developed, well nourished, no acute distress, non-toxic appearance. 84-year-old female in no apparent distress. HENT: Normocephalic, atraumatic, bilateral external ears normal, oropharynx moist, no oral exudates, nose normal. Eyes: PERRLA, EOMI, conjunctiva normal, no discharge. Neck: Normal range of motion, no tenderness, supple, no stridor. Cardiovascular:Heart rate regular rhythm, no murmur Lungs & Thorax: Bilateral breath sounds clear to auscultation Abdomen: Bowel sounds normal, soft, no tenderness, no masses, no pulsatile masses. Skin: Warm, dry, no erythema, no rash. Laceration to left hand fingers see extremity note Back: No tenderness, no CVA tenderness. Extremities: No tenderness, no cyanosis, no clubbing, ROM intact, no edema. 3.5 cm laceration to left index finger lateral aspect partial-thickness with adipose tissue present, 1.2 cm laceration to left index finger at finger web. Distal cap refill less than 2 seconds, no tendon involvement appreciated, full AROM/PROM of left hand digits, no swelling appreciated, no bruising appreciated, no bleeding noted, bandage was in place prior to physical exam. Neurologic: Alert and oriented X 3, normal motor function, normal sensory function, no focal deficits noted. Psychologic: Affect normal, judgement normal, mood normal. Current Patient Data Vital Signs Vital Signs Date Time Temp Pulse Resp B/P (MAP) Pulse Ox O2 Delivery O2 Flow Rate FiO2 04/25/20 19:32 97.5 80 16 97 EKG EKG [] Radiology/Procedures Radiology/Procedures [] Heart Score Risk Factors: Risk Factors: DM, Current or recent (<one month) smoker, HTN, HLP, family history of CAD, obesity. Risk Scores: Risk Factors: DM, Current or recent (<one month) smoker, HTN, HLP, family history of CAD, obesity. Course & Med Decision Making Course & Med Decision Making Pertinent Labs and Imaging studies reviewed. (See chart for details) 84-year-old female, vital signs reviewed, presents to the emergency department for laceration repair of the fingers of her left hand. Patient states that she stumbled backwards while getting into her "sitting chair ", patient is not exactly sure what she cut her fingers on. See laceration repair note. The patient's tetanus status was brought up-to-date. Patient lives in a senior care, will write orders for wound care, bacitracin daily, sutures out and 7 to 10 days. Reviewed discharge instructions with patient, patient states that her senior care will take care of her wounds. Patient was discharged back to her nursing care facility. Dragon Disclaimer Dragon Disclaimer This electronic medical record was generated, in whole or in part, using a voice recognition dictation system. Departure Departure: Impression: Primary Impression: Finger laceration Additional Impression: Laceration of finger of left hand with damage to nail Disposition: 01 DC HOME SELF CARE/HOMELESS Condition: GOOD Referrals: DARA SANDERS (PCP) Patient Instructions: Laceration Care, Adult Additional Instructions: You had 2 finger lacerations that were repaired today with sutures that require removal these are not dissolvable sutures, please keep them clean and dry, I have prescribed for you bacitracin ointment to apply 3 times a day, please have sutures removed in 7 to 10 days, return to the emergency department for worsening symptoms or other concerns. EMERGENCY DEPARTMENT GENERAL DISCHARGE INSTRUCTIONS Thank you for coming to [facility] (ED) today and trusting us with you care. We trust that you had a positivie experience in our Emergency Department. If you wish to speak to the department management, you may call the director at [phone]. YOUR FOLLOW UP INSTRUCTIONS ARE FOLLOWS: 1. Do you have a private Doctor? If you do not have a private doctor, please ask for a resource list of physicians or clinics that may be able to assist you with follow up care. 2. The Emergency Physician has interpreted your x-rays. The X-Ray specialist will also review them. If there is a change in the findings, you will be notified in 48 h ours when at all possible. 3. A lab test or culture has been done, your results will be reviewed and you will be notified if you need a change in treatment. ADDITIONAL INSTRUCTIONS AND INFORMATION: 1. Your care today has been supervised by a physician who is specially trained in emergency care. Many problems require more than one evaluation for a complete diagnosis and treatment. We recommend that you schedule your follow up appointment as recommended to ensure complete treatment of you illness or injury. If you are unable to obtain follow up care and continue to have a problem, or if your condition worsens, we recommend that you return to the ED. 2. We are not able to safely determine your condition over the phone nor are we able to give sound medical advice over the phone. For these safety reasons, if you call for medical advice we will ask you to come to the ED for further evaluation. 3. If you have any questions regarding these discharge instructions please call the ED at [phone]. SAFETY INFORMATION: In the interest of safety, wellness, and injury prevention; we encourage you to wear your sealbelt, if you smoke; quite smoking, and we encourage family to use a protective helmet for bicycling and other sporting events that present an increased risk for head injury. IF YOUR SYMPTOMS WORSEN OR NEW SYMPTOMS DEVELOP, OR YOU HAVE CONCERNS ABOUT YOUR CONDITION; OR IF YOUR CONDITION WORSENS WHILE YOU ARE WAITING FOR YOUR FOLLOW UP APPOINTMENT; EITHER CONTACT YOUR PRIMARY CARE DOCTOR, THE PHYSICIAN WHOSE NAME AND NUMBER YOU WERE GIVEN, OR RETURN TO THE ED IMMEDIATELY. Scripts Bacitracin Zinc/Polymyx B Sulf (DOUBLE ANTIBIOTIC OINTMENT) 28.4 Gm Oint...g. 28.4 GM TP TID for LACERATION CARE, #1 MISC 0 Refills APPLY TO SUTURE SITES THREE TIMES PER DAY UNTIL SUTURES ARE REMOVED. Prov: GERHARD MASSEY APRN 04/25/20 Laceration Repair Lac Repair Indication: [] Lacerations to left middle finger and left index finger at finger web Procedure: The patient was placed in the appropriate position and anesthesia around both lacerations was achieved with digital block to digit 2 and 3 using 8 cc 2% lidocaine without epinephrine.. The area was then cleansed with chlorhexidine soap, rinsed with high-pressure 240 cc normal saline.. The laceration of middle finger was closed with 5-0 nylon interrupted sutures 9 each, laceration at index finger web was closed with three 5-0 nylon interrupted sutures. The lacerations were dressed with bacitracin and bandaged per ED nursing staff. Total repaired wound length: Laceration #1 3.5 cm, laceration #2 1.2 cm The patient tolerated the procedure well. Complications: No complications. Problem Qualifiers Primary Impression: Finger laceration Encounter type: initial encounter Finger: index finger Damage to nail status: without damage Foreign body presence: without foreign body Laterality: left Qualified Codes: S61.211A - Laceration without foreign body of left index finger without damage to nail, initial encounter Additional Impression: Laceration of finger of left hand with damage to nail Encounter type: initial encounter Finger: middle finger Foreign body presence: without foreign body Qualified Codes: S61.313A - Laceration without foreign body of left middle finger with damage to nail, initial encounter GERHARD MASSEY APRN Apr 25, 2020 22:04
[2020-04-25 22:20] VITALS: BP 134/96
== END 2020-04-25 22:47 | disposition home or self-care (01) ==
LOC: ER 19:02
DX: S61.211A Laceration without foreign body of left index finger without damage to nail, initial encounter (principal); I48.91 Unspecified atrial fibrillation; M19.90 Unspecified osteoarthritis, unspecified site; I10 Essential (primary) hypertension; Z88.5 Allergy status to narcotic agent; W26.8XXA Contact with other sharp object(s), not elsewhere classified, initial encounter; Y93.89 Activity, other specified; Y92.89 Other specified places as the place of occurrence of the external cause; Y99.8 Other external cause status
CPT/HCPCS: 12002; 90471; 90715; 99284

== ENCOUNTER 2020-04-27 10:19 | Emergency (ER) | payer MEDICARE, OTHER ==
[~2020-04-27] VITALS: Ht 157.5 cm; Wt 97.2 kg
[~2020-04-27 10:19] MED LIST changes: +BACI28.433 TP
--- NOTE | 2020-04-27 10:33 | PHYS DOC ---
Past History Past Medical History: A-Fib, Arthritis, Hypertension Past Surgical History: Hysterectomy Alcohol Use: None Drug Use: None General Adult EDM: Chief Complaint: SHOULDER INJURY HPI: HPI: History obtained from patient and EMS. Patient is a an 84-year-old female with a history of atrial fibrillation, chronic lower extremity edema who presents from her extended care facility for left shoulder pain. Patient states she has had multiple falls over the past week. She notes she fell last week as well as 2 days ago. She was seen in emergency department 2 days ago and had stitches placed to her left index finger. She is unsure of when her shoulder discomfort started but notes it seemed to worsen 2 days ago. Outpatient x-ray was performed and does reveal a left anterior shoulder dislocation. Patient denies striking her head or any loss of consciousness. She does take Eliquis daily for A. fib. Denies any missed medication doses. States she is felt increasingly weak in her lower extremities bilaterally over the past week or so. She typically ambulates with the assistance of a walker. She notes walking minimal distances seems to cause her to become more weak. Denies chest pain or shortness of breath. Denies abdominal pain or vomiting. Denies confusion. No other complaints. Review of Systems: Review of Systems: Constitutional: Denies fever or chills Eyes: Denies change in visual acuity HENT: Denies nasal congestion or sore throat Respiratory: Denies cough or shortness of breath Cardiovascular: Denies chest pain or edema GI: Denies abdominal pain, nausea, vomiting, bloody stools or diarrhea : Denies dysuria Musculoskeletal: Positive for fall, shoulder pain Integument: Denies rash Neurologic: Denies headache, focal weakness or sensory changes Endocrine: Denies polyuria or polydipsia Lymphatic: Denies swollen glands Psychiatric: Denies depression or anxiety Allergies: Allergies: Allergies Coded Allergies Type Severity Reaction Last Updated Verified codeine Adverse Reaction Mild stomach upset 01/09/19 Yes Physical Exam: PE: Constitutional: Well developed, well nourished, no acute distress, non-toxic appearance. [] HENT: Normocephalic, atraumatic, bilateral external ears normal, oropharynx moist, no oral exudates, nose normal. [] Eyes: PERRLA, EOMI, conjunctiva normal, no discharge. [] Neck: Normal range of motion, no tenderness, supple, no stridor. [] Cardiovascular:Heart rate regular rhythm, no murmur. +2-4 pitting edema in the lower extremities bilaterally. Chronic in nature. [] Lungs & Thorax: Bilateral breath sounds clear to auscultation [] Abdomen: soft, no tenderness, no masses, no pulsatile masses. [] Skin: 3 x 3 cm area of skin breakdown inferior to the left gluteal fold. Mild bloody oozing appreciated. No overlying erythema or induration noted. 3 x 2 cm area of skin breakdown to the right gluteus. Mild bloody oozing appreciated. No overlying erythema or induration noted. No sacral decubitus ulcer identified. [] Back: No tenderness, no CVA tenderness. [] Extremities: Left shoulder with minimal active and passive range of motion. Anterior fullness palpated over the humeral head. +2-4 radial pulse on the left. Cardinal hand movements intact. Sensation intact in median, ulnar, and radial nerve distributions. Laceration appears well-healed. Neurologic: Alert and oriented X 3, normal motor function, normal sensory function, no focal deficits noted. [] Psychologic: Affect normal, judgement normal, mood normal. [] Current Patient Data: Labs: Laboratory Tests Test 04/27/20 10:46 04/27/20 11:02 White Blood Count 10.2 x10^3/uL Red Blood Count 4.08 x10^6/uL Hemoglobin 11.7 g/dL Hematocrit 36.9 % Mean Corpuscular Volume 90 fL Mean Corpuscular Hemoglobin 29 pg Mean Corpuscular Hemoglobin Concent 32 g/dL Red Cell Distribution Width 18.7 % Platelet Count 277 x10^3/uL Neutrophils (%) (Auto) 79 % Lymphocytes (%) (Auto) 7 % Monocytes (%) (Auto) 8 % Eosinophils (%) (Auto) 6 % Basophils (%) (Auto) 0 % Neutrophils # (Auto) 8.0 x10^3uL Lymphocytes # (Auto) 0.7 x10^3/uL Monocytes # (Auto) 0.8 x10^3/uL Eosinophils # (Auto) 0.6 x10^3/uL Basophils # (Auto) 0.0 x10^3/uL Prothrombin Time 11.8 SEC Prothromb Time International Ratio 1.1 Sodium Level 138 mmol/L Potassium Level 5.4 mmol/L Chloride Level 107 mmol/L Carbon Dioxide Level 18 mmol/L Anion Gap 13 Blood Urea Nitrogen 73 mg/dL Creatinine 1.9 mg/dL Estimated GFR (Cockcroft-Gault) 25.1 Glucose Level 108 mg/dL Calcium Level 9.1 mg/dL Troponin I Quantitative < 0.017 ng/mL SH-Obh-L-Type Natriuretic Peptide 1075 pg/mL Urine Collection Type Unknown Urine Color Yellow Urine Clarity Hazy Urine pH 5.5 Urine Specific [place] 1.020 Urine Protein Neg Urine Glucose (UA) Neg mg/dL Urine Ketones (Stick) Neg mg/dL Urine Blood Mod Urine Nitrite Neg Urine Bilirubin Neg Urine Urobilinogen Dipstick 0.2 mg/dL Urine Leukocyte Esterase Trace Urine RBC 6-10 /HPF Urine WBC 5-10 /HPF Urine Squamous Epithelial Cells Many /LPF Urine Bacteria Few /HPF Urine Hyaline Casts Occ /HPF Current Medications Medications (Trade) Dose Ordered Sig/Latesha Route PRN Reason Start Time Stop Time Status Last Admin Dose Admin Sodium Chloride 1,000 ml @ 100 mls/hr 1X ONCE IV 04/27/20 12:15 04/27/20 22:14 04/27/20 13:12 Vital Signs: Vital Signs Date Time Temp Pulse Resp B/P (MAP) Pulse Ox O2 Delivery O2 Flow Rate FiO2 04/27/20 13:07 97.8 53 16 102/49 (66) 98 04/27/20 12:00 56 16 127/48 (74) 98 Room Air 04/27/20 10:30 97.8 69 16 115/46 (69) 98 Room Air EKG: EKG: [] EKG consistent with bradycardia. Ventricular rate of 59 bpm. No discernible P waves present. Left axis deviation appreciated. Low voltage QRS noted throughout. No acute ischemic changes appreciated. Overall appears consistent with rate controlled A. fib. Radiology/Procedures: Radiology/Procedures: [address] [address] IMAGING REPORT Signed PATIENT: KVNG LEAVITT ACCOUNT: [id number] : 1935 LOCATION: ER AGE: 84 SEX: F EXAM STATUS: REG ER ORD. PHYSICIAN: ZENA BERNSTEIN DO REASON: L shoulder pain. concern for dislocation PROCEDURE: SHOULDER 2+V LEFT Left shoulder 2 views. HISTORY: Shoulder pain 2 views were taken of the left shoulder. There is an anterior dislocation of the shoulder. A fracture is not identified. There is arthritis at the AC joint. IMPRESSION: 1. Anterior dislocation right shoulder. Electronically signed by: Jaxon Heck MD (04/27/2020 11:39 AM) [id number] DICTATED AND SIGNED BY: JAXON HECK MD DATE: 04/27/20 1138 CC: DARA SANDERS; ZENA BERNSTEIN DO ~MTH0 0 [] Heart Score: Risk Factors: Risk Factors: DM, Current or recent (<one month) smoker, HTN, HLP, family history of CAD, obesity. Risk Scores: Score 0 - 3: 2.5% MACE over next 6 weeks - Discharge Home Score 4 - 6: 20.3% MACE over next 6 weeks - Admit for Clinical Observation Score 7 - 10: 72.7% MACE over next 6 weeks - Early Invasive Strategies Course & Med Decision Making: Course & Med Decision Making Pertinent Labs and Imaging studies reviewed. (See chart for details) [] Patient is an 84-year-old female arrives from her extended care facility for complaint of left shoulder pain. Patient has had multiple falls over the past week. It is unclear if when her left shoulder pain began. She was noted to have an anterior left shoulder dislocation. Remainder of imaging has been grossly unremarkable. Labs grossly unremarkable. She does have pressure ulcers noted to her buttocks bilaterally. Patient does have comorbidities complicating conscious sedation for shoulder reduction. Furthermore the chronicity of her left shoulder dislocation makes a successful reduction in the emergency department unlikely. I did discuss case with admitting surgeon Dr. Solo. He agrees with this assessment. I do feel she would benefit from orthopedic evaluation. Unfortunately we do not have the service at our facility. Patient was discussed with Dr. Bear, hospitalist. He has acc epted the patient to his service for further management. She has remained hemodynamically stable while in our emergency department. Dragon Disclaimer: Dragon Disclaimer: This electronic medical record was generated, in whole or in part, using a voice recognition dictation system. Departure Departure: Impression: Primary Impression: Dislocation of shoulder, left, closed Qualified Codes: S43.005A - Unspecified dislocation of left shoulder joint, initial encounter Additional Impressions: CKD (chronic kidney disease) Qualified Codes: N18.9 - Chronic kidney disease, unspecified Pressure ulcer Qualified Codes: L89.329 - Pressure ulcer of left buttock, unspecified stage Hyperkalemia Disposition: 02 DC/TRF OTHER SHORT TERM HOS Condition: STABLE Referrals: DARA SANDERS (PCP) ZENA BERNSTEIN DO Apr 27, 2020 10:33
[2020-04-27 11:11] LABS: BASO % 0 % (0-3); EOS # 0.6 x10^3/uL (0.0-0.7); EOS % 6 % (0-3); HEMATOCRIT 36.9 % (36.0-47.0); HEMOGLOBIN 11.7 g/dL (12.0-15.5); LYMPH # 0.7 x10^3/uL (1.0-4.8); LYMPH % 7 % (24-48); MEAN CORPUSCULAR HEMOGLOBIN 29 pg (25-35); MEAN CORPUSCULAR HGB CONC 32 g/dL (31-37); MEAN CORPUSCULAR VOLUME 90 fL (79-100); MONO # 0.8 x10^3/uL (0.0-1.1); MONO % 8 % (0-9); NEUT % 79 % (31-73); PLATELET COUNT 277 x10^3/uL (140-400); RED BLOOD COUNT 4.08 x10^6/uL (3.50-5.40); RED CELL DISTRIBUTION WIDTH 18.7 % (11.5-14.5); WHITE BLOOD COUNT 10.2 x10^3/uL (4.0-11.0)
[2020-04-27 11:25] LABS: CALCIUM 9.1 mg/dL (8.5-10.1); CREATININE 1.9 mg/dL (0.6-1.0); GFR 25.1; POTASSIUM 5.4 mmol/L (3.5-5.1)
--- NOTE | 2020-04-27 11:41 | RAD ---
Left shoulder 2 views. HISTORY: Shoulder pain 2 views were taken of the left shoulder. There is an anterior dislocation of the shoulder. A fracture is not identified. There is arthritis at the AC joint. IMPRESSION: 1. Anterior dislocation right shoulder. Electronically signed by: Jaxon Heck MD (04/27/2020 11:39 AM) [id number]
--- NOTE | 2020-04-27 11:41 | RAD ---
AP chest. HISTORY: Left shoulder pain AP view was taken of the chest. The heart is enlarged. There are no acute infiltrates. There is an an terior dislocation the left shoulder. There also appears to be a dislocation of the right shoulder. S houlder views on the right may be of benefit. There is no definite effusion. IMPRESSION: 1. Anterior dislocation left shoulder. 2. Anterior dislocation right shoulder. 3. Cardiomegaly. 4. No acute infiltrates. Electronically signed by: Jaxon Heck MD (04/27/2020 11:38 AM) [id number]
--- NOTE | 2020-04-27 11:55 | RAD ---
Examination: CT head and cervical spine without contrast CT HEAD INDICATION: Reason: fall / Spl. Instructions: / History: COMPARISON: None Available. Exposure: One or more of the following individualized dose reduction techniques were utilized for thi s examination: 1. Automated exposure control 2. Adjustment of the mA and/or kV according to patient size 3. Use of iterative reconstruction technique TECHNIQUE: 5 mm contiguous axial images were obtained from the skull base to the vertex in both bone and soft tissue algorithm. FINDINGS: Mild bilateral periventricular white matter hypodensities likely chronic small vessel ischemic diseas e. No evidence of acute intracranial hemorrhage. No extra-axial fluid collections. No mass effect or midline shift. Ventricular size is appropriate. Basal cisterns are patent. No fractures identified.Adam-white differentiation is preserved.Globes and orbits are within normal l imits. Paranasal sinuses and mastoid air cells are clear. IMPRESSION: No acute intracranial findings CT CERVICAL SPINE INDICATION: Reason: fall / Spl. Instructions: / History: COMPARISON: None Available. Technique: 2.5 mm contiguous axial images were obtained from the skull base through the cervicothorac ic junction in both bone and soft tissue algorithm. Additional sagittal and coronal reconstructions were also performed. FINDINGS: Vertebral body height are maintained. There is reversal of normal cervical lordosis. The lateral masses of C1 are aligned upon C2. No fractures identified. The bony canal is patent throughout. Moderate to severe intervertebral disc height loss identified in the cervical spine particularly at C 5-C6, C6-C7, C7-T1 vertebral levels with small anterior and posterior osteophyte formation. The paraspinous soft tissues are unremarkable. Visualized intracranial contents are unremarkable. L elmer apices are clear. IMPRESSION: 1. No acute fracture the cervical spine. Correlate clinically. 2. Moderate to severe degenerative changes cervical spine. Electronically signed by: Andi Reno MD (04/27/2020 11:52 AM) [id number]
[2020-04-27 11:58] LABS: BACTERIA,URINE FEW /HPF (0-FEW); BILIRUBIN,URINE NEG (NEG); CLARITY,URINE HAZY; COLOR,URINE YELLOW; GLUCOSE,URINE NEG (NEG); HYALINE CASTS, URINE OCC /HPF; NITRITE,URINE NEG (NEG); SQUAMOUS EPITHELIAL CELL,UR MANY /LPF; UROBILINOGEN,URINE 0.2 mg/dL (0.2 mg/dL)
[2020-04-27] MEDS ORDERED: IV NORMAL SALINE 1,000ML 1,000 ML IV ONE (12:15)
--- NOTE | 2020-04-27 16:09 | EKG ---
[facility] ED [facility] [address] [place] [id number] Test Date: 2020-04-27 Test Time: 10:53:46 Pat Name: KVNG LEAVITT Department: Room: Gender: F Practice Office Associate: LEONCIO : 1935 Requested By: ZENA BERNSTEIN Order Number: [id number] Reading MD: Measurements Intervals [place] Rate: 59 P: UT: QRS: -13 QRSD: 74 T: -9 QT: 452 QTc: 448 Interpretive Statements IRREGULAR RHYTHM, NO P-WAVE FOUND LEFTWARD AXIS LOW VOLTAGE QRS(T) CONTOUR ABNORMALITY CONSISTENT WITH ANTEROSEPTAL INFARCT AGE UNDETERMINED CONSISTENT WITH INFERIOR INFARCT AGE UNDETERMINED ABNORMAL ECG RI6.02 No previous ECG available for comparison
[2020-04-27 18:16] VITALS: BP 111/53
== END 2020-04-27 19:17 | disposition short-term general hospital (02) ==
LOC: ER 10:19
DX: S43.005A Unspecified dislocation of left shoulder joint, initial encounter (principal); L89.329 Pressure ulcer of left buttock, unspecified stage; I12.9 Hypertensive chronic kidney disease with stage 1 through stage 4 chronic kidney disease, or unspecified chronic kidney disease; N18.9 Chronic kidney disease, unspecified; I48.91 Unspecified atrial fibrillation; M19.90 Unspecified osteoarthritis, unspecified site; E87.5 Hyperkalemia; R29.6 Repeated falls; Z20.822 Contact with and (suspected) exposure to COVID-19; Z88.5 Allergy status to narcotic agent; W18.39XA Other fall on same level, initial encounter; Y93.89 Activity, other specified; Y92.89 Other specified places as the place of occurrence of the external cause; Y99.8 Other external cause status
CPT/HCPCS: 23650; 36415; 70450; 71045; 72125; 73030; 80048; 81001; 83880; 84484; 85025; 85610; 87077; 87086; 87186; 93005; 96360; 96361; 99285; C9803; J7030; U0003